=== PATIENT | male | born 1980 | race Caucasian/White ===

== ENCOUNTER → 2018-08-18 | Outpatient (CLI) | payer OTHER ==
[~2018-08-18] MED LIST: ISOVUE-370 76% 100ML VIAL (Q9967) As Ordered
== END ==
LOC: M RAD 14:20
DX: Z03.89 Encounter for observation for other suspected diseases and conditions ruled out (principal)
CPT/HCPCS: Q9967

== ENCOUNTER → 2018-12-07 | Outpatient (CLI) | payer OTHER ==
[~2018-12-07] MED LIST changes: -ISOVUE-370 76% 100ML VIAL (Q9967) As Ordered; +ISOVUE-370 76% 100ML VIAL (Q9967) As Ordered ONE
== END ==
LOC: M RAD 16:45
PROVIDERS: ATTEND Otolaryngology
DX: R04.0 Epistaxis (principal)

== ENCOUNTER → 2019-01-06 | Outpatient (CLI) | payer OTHER ==
[2019-01-06 13:34] LABS: BLOOD UREA NITROGEN 13 MG/DL (7-18); CREATININE FOR GFR 1.03 MG/DL (0.70-1.30); GLOMERULAR FILTRATION RATE > 60.0 (>60)
== END ==
LOC: M LAB 11:51
PROVIDERS: ATTEND Otolaryngology
DX: J34.2 Deviated nasal septum (principal); R04.0 Epistaxis

== ENCOUNTER → 2019-01-07 | Outpatient (CLI) | payer OTHER ==
--- NOTE | 2019-01-07 14:42 | REP ---
MAXILLOFACIAL CT WITH CONTRAST: HISTORY: Epistaxis. CONTRAST: Isovue 370, 75 mL. Very minimal mucosal thickening is present in the left maxillary sinus. There remaining sinuses are clear. The osteomeatal units are patent. The middle and inferior nasal turbinates are partially paradoxical. There is adriel bullosa of the right middle nasal turbinate. There is mild deviation of the nasal septum to the right. The cribriform plate, medial campos of the orbits, and optic canals are intact. The carotid canals form as segment of the posterolateral campos of the sphenoid sinus. The sphenoid sinus septum inserts into the right internal carotid canal wall. Contents of the orbits are normal. The naso- and oropharynx are normal in appearance. IMPRESSION: Sinus mucosal thickening as described above. Electronically Signed by Raman Vidal MD 01/07/2019 02:43 P
== END ==
LOC: M RAD 13:31
PROVIDERS: ATTEND Otolaryngology
DX: R04.0 Epistaxis (principal)
CPT/HCPCS: 70487; Q9967

== ENCOUNTER → 2019-01-15 | Outpatient (CLI) | payer OTHER ==
--- NOTE | 2019-01-15 13:58 | REP ---
TRIPLE PHASE BONE SCAN OF LOWER LEGS: Following the intravenous administration of the 21.8 mCi of technetium-99m MDP, patient's lower legs are imaged in the flow phase in the anterior and posterior projections showing symmetrical blood flow. Immediate blood pool and 2 hour delayed images are performed of the knees and lower legs in multiple projections. There is no abnormal blood pooling. The delayed images shows mild increased symmetrical radiotracer uptake along the tibial shafts bilaterally predominantly along the anterolateral cortex of both tibias proximally. Findings could indicate some degree of stress periostitis. No stress fracture is seen of the visualized osseous structures. Electronically Signed by Tarik Sawyer MD 01/18/2019 11:26 A
== END ==
LOC: M RAD 10:21
PROVIDERS: ATTEND Physician Assistant
DX: M79.604 Pain in right leg (principal); M79.605 Pain in left leg
CPT/HCPCS: 78315; A9503

== ENCOUNTER → 2019-04-19 | Outpatient (CLI) | payer OTHER ==
[~2019-04-19] MED LIST changes: +ATOR40TA75 PO; +D 50CAP PO; -ISOVUE-370 76% 100ML VIAL (Q9967) As Ordered ONE; +LISI10TA4 PO; +LUNE3TAB36 PO; +LYRI75CA PO; +META1TAB22 PO; +METF500T4 PO; +METH1TAB40 PO; +MIRA3350 PO; +PRAZ2CAP PO; +PROTPAK PO; +SERT25TA85 PO; +SUMA100T2 PO
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
== END ==
LOC: M PLARAD 17:44
PROVIDERS: ATTEND Physician Assistant
DX: R93.89 Abnormal findings on diagnostic imaging of other specified body structures (principal)

== ENCOUNTER → 2019-04-29 | Outpatient (CLI) | payer OTHER ==
[~2019-04-29] MED LIST changes: +CONRAY-43 43% 50ML VIAL (Q9960) As Ordered ONE; +PROHANCE 279.3MG/ML 5ML VIAL (A9576) As Ordered ONE
--- NOTE | 2019-04-29 09:09 | REP ---
Reason For Exam/Comment: Left hip pain Procedure: Left hip arthrogram The procedure was performed by JULIANE Cardozo, under the direct supervision of Dr. Sawyer. The benefits and risks including but not limited to pain, infection, bleeding and anaphylaxis were explained to the patient and informed consent was obtained both verbally and written. Directly prior to the start of the procedure, a formal timeout was completed in the procedure room. Technique: The left femoral neck was localized using fluoroscopic guidance. The skin was prepped and draped in the usual sterile fashion. 5 mL of 1% lidocaine was used as a local anesthetic. Using fluoroscopic guidance a 22-gauge spinal needle was inserted and advanced to the left femoral neck joint space. 1 mL of Conray 43 was injected to verify needle placement. 12 mL of a solution containing 20 ml of sterile saline and a 0.15 ml of ProHance was injected into the joint. The needle was removed and the patient was taken MRI for post procedural imaging. The patient tolerated the procedure well and there were no immediate complications. 0.1 minutes of fluoroscopy time was utilized for this procedure. Reviewed by JULIANE Nunez 04/29/2019 08:27 A Electronically Signed by Tarik Sawyer MD 04/29/2019 09:00 A
--- NOTE | 2019-04-29 09:17 | REP ---
MR ARTHROGRAM, LEFT HIP: TECHNIQUE: Coronal T1, STIR through the pelvis, post arthrogram axial T1 fat sat, T2 fat sat, coronal T1 fat sat, T2 fat sat, sagittal T1 fat sat, axial oblique T1 fat sat left hip. The visualized osseous structures demonstrate normal marrow signal. There is no bone marrow edema or occult fracture. There is no evidence of avascular necrosis. Evaluation of the left hip labrum demonstrates thinning of the anterior labrum superiorly with probably fraying. I do not see a discrete labral tear. No paralabral cyst is seen. There is mild increased signal on T2-weighted images with a tiny amount of fluid in the region of the greater trochanter of the proximal left femur as well as proximal right femur, compatible with mild bilateral greater trochanteric tendinobursitis. Other surrounding soft tissue structures appear unremarkable with no abnormal signal. The visualized intrapelvic structures are unremarkable. IMPRESSION: There appears to be thinning of the anterior labrum, superiorly with probable fraying. No discrete labral tear is seen. There is no occult fracture or marrow signal abnormality. There are findings compatible with mild bilateral greater trochanteric tendinobursitis. Electronically Signed by Tarik Sawyer MD 04/29/2019 09:27 A
== END ==
LOC: M RADPRO 06:24
PROVIDERS: ATTEND Orthopaedic Surgery
DX: M24.152 Other articular cartilage disorders, left hip (principal); M25.552 Pain in left hip
CPT/HCPCS: 27093; 73723; 77002; A9576; Q9960

== ENCOUNTER → 2019-05-24 | Outpatient (CLI) | payer OTHER ==
[~2019-05-24] MED LIST changes: -CONRAY-43 43% 50ML VIAL (Q9960) As Ordered ONE; +METF-791 PO; -METF500T4 PO; -PROHANCE 279.3MG/ML 5ML VIAL (A9576) As Ordered ONE
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
== END ==
LOC: M RAD 17:55
PROVIDERS: ATTEND Nurse Practitioner
DX: M54.12 Radiculopathy, cervical region (principal); M50.221 Other cervical disc displacement at C4-C5 level; M25.78 Osteophyte, vertebrae

== ENCOUNTER → 2019-10-20 | Outpatient (REF) | payer OTHER ==
[2019-10-20 20:15] LABS: MALB URINE SIEMENS 36.2 MG/L; MAU/CREAT RATIO 9.5 MCG/MG (0.0-30.0)
== END ==
LOC: M LABDRAW1 13:26
PROVIDERS: ATTEND Nurse Practitioner Family
DX: E11.65 Type 2 diabetes mellitus with hyperglycemia (principal)